=== PATIENT | female | born 1980 | race Caucasian/White ===

== ENCOUNTER 2016-06-26 14:21 | Emergency (ER) | payer SELFPAY ==
[~2016-06-26] VITALS: Ht 157.5 cm; Wt 68.0 kg
[~2016-06-26 14:21] MED LIST: MACR100C2 PO; REME15TA PO
[2016-06-26 14:35] VITALS: BP 113/84; PULSE 77; RESP 18; TEMP 98.6; O2SAT 97
--- NOTE | 2016-06-26 15:18 | PD ---
HPI Chief Complaint: Travel [place] Problem/Complaint Time Seen by Provider: 15:04 Travel History International Travel<30 days: No Contact w/Intl Traveler<30days: No Traveled to known affect area: No History of Present Illness HPI This 35-year-old female presents with complaint of possible genital herpes. She has a history of genital herpes and gets occasional flareups. She generally does episodic therapy which helps her. She has noted some bumps on the labia today She does not have any medication right now. He is also concerned that she might have vaginosis. She does not think she is . PFSH Past Medical History Anxiety: Yes Depression: Yes Cerebrovascular Accident: No Diminished Hearing: No Immunizations Current: No Myocardial Infarction: No Renal Failure: No Ulcer: No Tetanus Vaccination: < 5 Years Influenza Vaccination: Yes ?: Not LMP: 3 WEEKS AGO Menopausal: No : 5 Para: 3 Miscarriage: 1 : 1 Past Surgical History Surgical History: No Previous Surgery Social History Alcohol Use: Yes (SELDOM) Tobacco Use: No Substance Use: Yes (SMOKES WEED OCCASIONALLY) Allergies-Medications (Allergen,Severity, Reaction): Coded Allergies: Penicillin (Verified Allergy, Severe, Hives, 06/26/16) Reported Meds & Prescriptions Reported Meds & Active Scripts Active Acyclovir 800 Mg Tab 800 Mg PO TID 2 Days Reported Remeron (Mirtazapine) 15 Mg Tab 15 Mg PO HS Review of Systems General / Constitutional: No: Fever, Chills Eyes: No: Diploplia, Blurred Vision HENT: No: Headaches Cardiovascular: No: Chest Pain or Discomfort Respiratory: No: Cough, Shortness of Breath Gastrointestinal: No: Vomiting, Diarrhea Genitourinary: Positive: Discharge, No: Frequency Musculoskeletal: No: Myalgias, Arthralgias Skin: No Rash, No Itching Neurologic: No: Weakness Endocrine: No: Heat Intolerance, Cold Intolerance Hematologic/Lymphatic: No: Easy Bruising Physical Exam Narrative GENERAL: Well-developed female SKIN: Focused skin assessment warm/dry. HEAD: Atraumatic. Normocephalic. EYES: Pupils equal and round. No scleral icterus. No injection or drainage. ENT: No nasal bleeding or discharge. Mucous membranes pink and moist. NECK: Trachea midline. No JVD. CARDIOVASCULAR: Regular rate and rhythm. No murmur appreciated. RESPIRATORY: No accessory muscle use. Clear to auscultation. Breath sounds equal bilaterally. GASTROINTESTINAL: Abdomen soft, non-tender, nondistended. Hepatic and splenic margins not palpable. : There are a few vesicular lesions on the external genitalia which are tender. These are consistent with herpetic lesions. On speculum exam there is some white discharge MUSCULOSKELETAL: No obvious deformities. No clubbing. No cyanosis. No edema. NEUROLOGICAL: Awake and alert. No obvious cranial nerve deficits. Motor grossly within normal limits. Normal speech. PSYCHIATRIC: Appropriate mood and affect; insight and judgment normal. Data Data Last Documented VS Vital Signs Date Time Temp Pulse Resp B/P Pulse Ox O2 Delivery O2 Flow Rate FiO2 06/26/16 14:35 98.6 77 18 113/84 97 Orders Gc And Chlamydia Pcr (06/26/16 15:11) Wet Prep Profile (06/26/16 15:11) Labs Laboratory Tests Test 06/26/16 15:30 Clue Cells (Wet Prep) NONE SEEN Vaginal Trichomonas (Wet Prep) NONE SEEN Vaginal Yeast (Wet Prep) NONE SEEN MDM Medical Decision Making Medical Screen Exam Complete: Yes Emergency Medical Condition: Yes Medical Record Reviewed: Yes Differential Diagnosis Differential includes genital herpes flare, Trichomonas, vaginitis Narrative Course Wet prep is negative. Patient will be treated for flare of genital herpes Diagnosis Primary Impression: Recurrent genital herpes Scripts Acyclovir 800 Mg [id number] Mg PO TID 2 Days Ref 0 Prov:Ramón Dixon MD 06/26/16 Disposition: 01 DISCHARGE HOME Condition: Stable Ramón Dixon MD Jun 26, 2016 15:18
[2016-06-26] MEDS ORDERED: ACYC800T PO (15:43)
[2016-06-26 21:58] LABS: CHLAMYDIA PCR NOT DETECTED (NOT DETECT); NEISSERIA PCR NOT DETECTED (NOT DETECT)
== END 2016-06-26 16:18 | disposition home or self-care (01) ==
LOC: PHED 14:21
DX: A60.04 Herpesviral vulvovaginitis (principal); Z86.59 Personal history of other mental and behavioral disorders
CPT/HCPCS: 87210; 87491; 87591; 99283

== ENCOUNTER 2016-10-28 15:40 | Emergency (ER) | payer MEDICAID ==
[~2016-10-28] VITALS: Ht 157.5 cm; Wt 69.4 kg
[~2016-10-28 15:40] MED LIST changes: +ACYC800T PO; -MACR100C2 PO
[2016-10-28 15:42] VITALS: BP 129/75; PULSE 77; RESP 16; TEMP 98.3; O2SAT 100
[2016-10-28] MEDS ORDERED: CLIN1CAP6 PO (16:54)
--- NOTE | 2016-10-28 16:54 | PD ---
HPI Chief Complaint: Oral / Dental Pain or Problem Time Seen by Provider: 16:40 Travel History International Travel<30 days: No Contact w/Intl Traveler<30days: No Traveled to known affect area: No History of Present Illness HPI 35-year-old female with left upper dental pain and sore throat 3 days. Patient reports she has a decayed and fractured tooth at the site of the pain. She denies fever or chills. Pain is constant, nonradiating. No aggravating or alleviating factors. Severity 5/10. PFSH Past Medical History Anxiety: Yes Depression: Yes Cerebrovascular Accident: No Diminished Hearing: No Immunizations Current: No Myocardial Infarction: No Renal Failure: No Ulcer: No ?: Not Menopausal: No : 5 Para: 3 Miscarriage: 1 : 1 Past Surgical History Surgical History: No Previous Surgery Social History Alcohol Use: Yes (SELDOM) Tobacco Use: No Substance Use: Yes (SMOKES WEED OCCASIONALLY) Allergies-Medications (Allergen,Severity, Reaction): Coded Allergies: Penicillin (Verified Allergy, Severe, Hives, 10/28/16) Reported Meds & Prescriptions Reported Meds & Active Scripts Active Clindamycin (Clindamycin HCl) 300 Mg Cap 300 Mg PO Q6H Reported Remeron (Mirtazapine) 15 Mg Tab 15 Mg PO HS Review of Systems Except as stated in HPI: all other systems reviewed are Neg General / Constitutional: No: Fever Eyes: No: Visual changes HENT: No: Headaches Physical Exam Narrative GENERAL: Well-nourished, well-developed patient. SKIN: Focused skin assessment warm/dry. HEAD: Normocephalic. EYES: No scleral icterus. No injection or drainage. Mouth: Tooth #12 decayed with surrounding gum erythema. Mild tonsillar swelling /erythema/exudate. NECK: Supple, trachea midline. No JVD or lymphadenopathy. CARDIOVASCULAR: Regular rate and rhythm without murmurs, gallops, or rubs. RESPIRATORY: Breath sounds equal bilaterally. No accessory muscle use. GASTROINTESTINAL: Abdomen soft, non-tender, nondistended. Data Data Last Documented VS Vital Signs Date Time Temp Pulse Resp B/P Pulse Ox O2 Delivery O2 Flow Rate FiO2 10/28/16 15:42 98.3 77 16 129/75 100 MDM Medical Decision Making Medical Screen Exam Complete: Yes Emergency Medical Condition: Yes Differential Diagnosis Dental abscess, periodontal disease, dental caries, pharyngitis, Narrative Course 35-year-old female with chief complaint of left upper dental pain and sore throat. Patient has widespread dental decay. Tooth #11 is decayed with surrounding gum erythema and tenderness. Patient also has mild left tonsillar swelling with exudate. Patient will be treated with clindamycin for dental abscess. Instructed to follow up with her dentist. Return precautions discussed. Diagnosis Primary Impression: Dental abscess Referrals: Primary Care Physician Scripts Clindamycin 300 Mg [id number] Mg PO Q6H #40 CAP Prov:Yashira Trejo 10/28/16 Disposition: 01 DISCHARGE HOME Condition: Stable Yashira Trejo Oct 28, 2016 16:54
== END 2016-10-28 17:13 | disposition home or self-care (01) ==
LOC: PHED 15:40 → PHEFT 17:13
DX: K04.7 Periapical abscess without sinus (principal); K02.9 Dental caries, unspecified; R07.0 Pain in throat; Z86.59 Personal history of other mental and behavioral disorders
CPT/HCPCS: 99283

== ENCOUNTER 2017-03-20 22:35 | Emergency (ER) | payer MEDICAID, OTHER ==
[~2017-03-20 22:35] MED LIST changes: -ACYC800T PO; +CLIN300C5 PO
[2017-03-20 22:57] VITALS: BP 102/58; PULSE 75; RESP 20; TEMP 98.2; O2SAT 98
[2017-03-20 23:21] LABS: BILIRUBIN, URINE NEG (NEG); BLOOD, URINE MOD (NEG); GLUCOSE,URINE NEG (NEG); KETONE, URINE NEG (NEG); NITRITE,URINE NEG (NEG); URINE LEUKOCYTE ESTERASE SMALL (NEG)
[2017-03-20 23:26] LABS: URINE COLOR YELLOW (YELLW/STRAW)
[2017-03-20 23:27] LABS: MUCUS URINE FEW /lpf (OCC)
[2017-03-20 23:28] LABS: SQUAMOUS EPITHELIAL CELL URINE 0-5 /hpf (0-5)
[2017-03-20 23:29] LABS: BACTERIA, URINE OCC /hpf
[2017-03-20 23:30] LABS: AMORPHOUS SEDIMENT, URINE MOD
[2017-03-21] MEDS ORDERED: MACR100C2 PO (01:02)
[2017-03-21] MEDS ORDERED: PHEN0.4T PO (01:03)
--- NOTE | 2017-03-21 01:04 | PD ---
HPI Chief Complaint: Complaint Time Seen by Provider: 00:54 Travel History International Travel<30 days: No Contact w/Intl Traveler<30days: No Traveled to known affect area: No History of Present Illness HPI The patient is a 36-year-old female that complains of dysuria, frequency and urgency for one week. She denies any nausea, vomiting or flank pain. She denies any fever. She denies any pelvic rash at this time. PFSH Past Medical History Anxiety: Yes Depression: Yes Cerebrovascular Accident: No Diminished Hearing: No Immunizations Current: No Myocardial Infarction: No Renal Failure: No Ulcer: No Tetanus Vaccination: < 5 Years Influenza Vaccination: No ?: Not LMP: 12 14 18 Menopausal: No : 5 Para: 3 Miscarriage: 1 : 1 Past Surgical History Surgical History: No Previous Surgery Social History Alcohol Use: Yes (SELDOM) Tobacco Use: No Substance Use: Yes (SMOKES WEED OCCASIONALLY) Allergies-Medications (Allergen,Severity, Reaction): Coded Allergies: penicillin G (Unverified Allergy, Severe, Hives, 03/21/17) Reported Meds & Prescriptions Reported Meds & Active Scripts Active Reported Remeron (Mirtazapine) 15 Mg Tab 15 Mg PO HS Review of Systems Except as stated in HPI: all other systems reviewed are Neg Physical Exam Narrative GENERAL: Well-nourished, well-developed patient. SKIN: Focused skin assessment warm/dry. HEAD: Normocephalic. EYES: No scleral icterus. No injection or drainage. NECK: Supple, trachea midline. No JVD or lymphadenopathy. CARDIOVASCULAR: Regular rate and rhythm without murmurs, gallops, or rubs. RESPIRATORY: Breath sounds equal bilaterally. No accessory muscle use. GASTROINTESTINAL: Abdomen soft, non-tender except for some minimal discomfort in the suprapubic area, nondistended. No flank tenderness is present. MUSCULOSKELETAL: No cyanosis, or edema. BACK: Nontender without obvious deformity. No CVA tenderness. Data Data Last Documented VS Vital Signs Date Time Temp Pulse Resp B/P (MAP) Pulse Ox O2 Delivery O2 Flow Rate FiO2 03/20/17 22:57 98.2 75 20 102/58 (73) 98 Orders Orders Urinalysis - C+S If Indicated (03/20/17 22:39) Ed Urine Pregnancytest Poc (03/20/17 23:01) Urine Culture (03/20/17 23:00) Labs Laboratory Tests Test 03/20/17 23:00 Urine Color YELLOW Urine Turbidity MOD Urine pH 7.0 Urine Specific [place] 1.026 Urine Protein TRACE mg/dL Urine Glucose (UA) NEG mg/dL Urine Ketones NEG mg/dL Urine Occult Blood MOD Urine Nitrite NEG Urine Bilirubin NEG Urine Leukocyte Esterase SMALL Urine RBC 10-14 /hpf Urine WBC 9-14 /hpf Urine Squamous Epithelial Cells 0-5 /hpf Urine Amorphous Sediment MOD Urine Bacteria OCC /hpf Urine Mucus FEW /lpf Microscopic Urinalysis Comment CULTURE INDICATED MDM Medical Decision Making Medical Screen Exam Complete: Yes Emergency Medical Condition: Yes Medical Record Reviewed: Yes Interpretation(s) The urine shows the urine shows clear with trace protein and moderate occult blood and small leukocyte esterase and 10-14 red cells and 9-14 white cells and occasional bacteria and culture is indicated. Differential Diagnosis Cystitis, pyelonephritis, herpes simplex Narrative Course The patient has cystitis. There is no clinical or historical evidence for pyelonephritis and herpes simplex is highly unlikely Diagnosis Primary Impression: Cystitis Additional Instructions: As we discussed, it is important to establish a good urine flow through your kidneys. Drink plenty of water. Med/Other Pt SpecificInfo: Prescription(s) given Scripts Phenazopyridine (Pyridium) 100 Mg Tab 100 MG PO Q8HR for Dysuria, #12 TAB 0 Refills Prov: Jose E Bnoe MD 03/21/17 Nitrofurantoin Monohydrate Macrocrystals (Macrobid) 100 Mg Capsule 100 MG PO BID for Infection for 10 Days, #20 CAP 0 Refills Prov: Jose E Bone MD 03/21/17 Disposition: 01 DISCHARGE HOME Condition: Stable Jose E Bone MD Mar 21, 2017 01:04
[2017-03-21 01:12] VITALS: BP 110/62
[2017-03-21] MEDS ORDERED: NITROFURANTOIN MONOHYD MACROCR 100 MG CAP PO ONE (01:15)
[2017-03-21] MEDS ORDERED: PHENAZOPYRIDINE HCL 100 MG TAB PO ONE (01:15)
== END 2017-03-21 01:17 | disposition home or self-care (01) ==
LOC: PHED 22:35 → PHEFT 03-21 01:17
DX: N30.90 Cystitis, unspecified without hematuria (principal); B96.20 Unspecified Escherichia coli [E. coli] as the cause of diseases classified elsewhere; F41.9 Anxiety disorder, unspecified; F32.9 Major depressive disorder, single episode, unspecified; F12.90 Cannabis use, unspecified, uncomplicated
CPT/HCPCS: 81001; 84703; 87077; 87086; 87186; 99284

== ENCOUNTER 2017-07-07 15:17 | Emergency (ER) | payer OTHER ==
[~2017-07-07 15:17] MED LIST changes: -CLIN300C5 PO; +MACR100C2 PO; +PHEN0.4T PO
== END 2017-07-07 15:54 | disposition left against medical advice (07) ==
LOC: NED 15:17
DX: Z53.21 Procedure and treatment not carried out due to patient leaving prior to being seen by health care provider (principal)
CPT/HCPCS: 99281